=== PATIENT | male | born 1980 | race African-American/Black ===

== ENCOUNTER 2016-08-05 15:53 | Emergency (ER) | payer BC, OTHER ==
[~2016-08-05] VITALS: Ht 165.1 cm; Wt 86.2 kg
[~2016-08-05 15:53] MED LIST: ANTI-ITCH28 GM TOPIC; BACTRIM DS TAB1 EAC1 ORAL; BENTYL10 MG ORAL; CEFDINIR300 MG PO; CLOTRIMAZOLE-BE15 GM TP; CYCLOBENZAPRINE10 MG ORAL; IBUPROFEN600 MG ORAL; IBUPROFEN800 M1 PO; KEFLEX500 MG ORAL; LIDOCAINE VISC100 ML MT; NKM; TRAMADOL HCL50 MG ORAL; ZOFRAN4 MG ORAL
[2016-08-05] MEDS ORDERED: Tetanus/Diptheria/Pertussis Vaccine 0.5ml Syr IM ONE (16:15)
[2016-08-05] MEDS ORDERED: Bacitracin Oint UD TOPIC ONE (16:15)
[2016-08-05] MEDS ORDERED: BACITRACIN15 GM TOPIC (16:22)
[2016-08-05 18:28] VITALS: BP 145/67
[2016-08-05 18:30] VITALS: BP 145/67
--- NOTE | 2016-08-05 22:09 | Emergency Room Report ---
History of Present Illness General Chief Complaint: Laceration Source: Patient Present Illness HPI the patient is a 35-year-old male presenting for one week old laceration to the neck. Patient states that a metal framing cut the neck while he was transporting. He noticed pain and bleeding to the area. He states that he cleaned the area with peroxide multiple times and covered it with a bandage. He states that pain has resolved and is now a 0/10. He is concerned for infection. He is unsure of last tetanus shot. He denies any other symptoms including fever, chills, shortness of breath, sore throat Allergies: Coded Allergies: No Known Allergies (Unverified , 06/05/13) Patient History Past Medical History: see triage record Pertinent Family History: none Reviewed Nursing Documentation: PMH: Agreed, PSxH: Agreed Nursing Documentation-PMH Past Medical History: No Stated History Review of Systems All Other Systems: negative except mentioned in HPI Physical Exam Vital Signs Date Time Temp Pulse Resp B/P Pulse Ox O2 Delivery O2 Flow Rate FiO2 08/05/16 16:02 98.2 61 20 145/67 99 Room Air Sp02 EP Interpretation: reviewed, normal General Appearance: no apparent distress, alert, GCS 15, non-toxic Head: normocephalic, atraumatic Eyes: bilateral eye PERRL, bilateral eye normal inspection ENT: hearing grossly normal, normal pharynx, no angioedema, normal voice Neck: supple, no bony tend, other - 2cm linear laceration to R neck. healing well. Musculoskeletal: back normal, gait/station normal, normal range of motion Neurologic: alert, oriented x3, responsive, motor strength/tone normal, sensory intact, speech normal Psychiatric: judgement/insight normal, memory normal, mood/affect normal, no suicidal/homicidal ideation Skin: normal color, no rash, warm/dry, well hydrated, wd healing/no infection noted, laceration - 2cm linear laceration to R neck Lymphatic: no adenopathy Medical Decision Making PA Attestation Dr. Daley is my supervising physician. Patient management was discussed with my supervising physician Diagnostic Impression: Primary Impression: Laceration ER Course the patient is a 35-year-old male presenting for one week old laceration to the neck Ddx considered include but not limited to fracture, tendon/ligament injury, avulsion, nerve damage, infection The wound is well healing and well approximated. No bleeding. No surrounding erythema. Nontender. No discharge The patient is given a tetanus shot. The wound is outside of the time period for closure and is healing well on its own He is discharged home with a prescription for bacitracin and will continue to keep the area clean and dry. ER precautions given Last Vital Signs Date Time Temp Pulse Resp B/P Pulse Ox O2 Delivery O2 Flow Rate FiO2 08/05/16 18:30 98.2 69 20 145/67 99 Room Air Status: improved Disposition: HOME, SELF-CARE Condition: Improved Scripts Bacitracin (Bacitracin) 28.4 Gm Oint...g. 1 APPLIC TOPIC THREE TIMES A DAY, #28 GM Prov: JASON PURI 08/05/16 Referrals: Nathalie MUÑIZ,REFERRING (PCP) Patient Instructions: Nonsutured Laceration Care Additional Instructions: I discussed my findings with the patient. All questions and concerns have been answered. Treatment and medication compliance have been addressed. I advised the patient that they need to follow up with PMD in 3-5 days. Return to ED if symptoms worsen, new symptoms arise, or if needed for any reason. Patient verbalized understanding of discharge instructions. JASON PURI Aug 05, 2016 22:09
== END 2016-08-05 16:30 | disposition home or self-care (01) ==
LOC: EMR 16:20
DX: S11.91XA Laceration without foreign body of unspecified part of neck, initial encounter (principal); W45.8XXA Other foreign body or object entering through skin, initial encounter; Y92.89 Other specified places as the place of occurrence of the external cause; Z23 Encounter for immunization
CPT/HCPCS: 90471; 90715; 96372; 99283

== ENCOUNTER 2016-08-27 15:32 | Emergency (ER) | payer OTHER ==
[~2016-08-27] VITALS: Ht 165.1 cm; Wt 83.9 kg
[~2016-08-27 15:32] MED LIST changes: +BACITRACIN15 GM TOPIC
[2016-08-27] MEDS ORDERED: TERBINAFINE15 GM TP (15:52)
[2016-08-27 16:04] VITALS: BP 118/59
[2016-08-27 16:06] VITALS: BP 118/59
--- NOTE | 2016-08-27 21:09 | Emergency Room Report ---
History of Present Illness General Chief Complaint: Skin Rash/Abscess Source: Patient Present Illness HPI The patient is a 35-year-old male presenting for rash of the genital region for the past month. This is described as itchy and does not hurt. He denies any penile pain or discharge. He denies dysuria, hematuria, abdominal pain, testicular pain, fever, chills Allergies: Coded Allergies: No Known Allergies (Unverified , 06/05/13) Patient History Past Medical History: see triage record Pertinent Family History: none Reviewed Nursing Documentation: PMH: Agreed, PSxH: Agreed Nursing Documentation-PMH Past Medical History: No Stated History Review of Systems All Other Systems: negative except mentioned in HPI Physical Exam Vital Signs Date Time Temp Pulse Resp B/P Pulse Ox O2 Delivery O2 Flow Rate FiO2 08/27/16 15:37 98.2 60 20 118/59 98 Room Air Sp02 EP Interpretation: reviewed, normal General Appearance: no apparent distress, alert, GCS 15, non-toxic Head: normocephalic, atraumatic Eyes: bilateral eye PERRL, bilateral eye normal inspection ENT: hearing grossly normal, normal pharynx, no angioedema, normal voice Neck: full range of motion, supple/symm/no masses Genitourinary: penis normal, other - rash on inguinal region. See skin section Musculoskeletal: back normal, gait/station normal, normal range of motion, non- tender Neurologic: alert, oriented x3, responsive, motor strength/tone normal, sensory intact, speech normal Psychiatric: judgement/insight normal, memory normal, mood/affect normal, no suicidal/homicidal ideation Skin: rash - diffuse erythematous rash of bilat inguinal regions. Some scaling with raised border. Lymphatic: no adenopathy Medical Decision Making PA Attestation Dr. Lynch is my supervising physician. Patient management was discussed with my supervising physician Diagnostic Impression: Primary Impression: Tinea cruris ER Course The patient is a 35-year-old male presenting for rash of the genital region DDx considered but not limited to: tinea cruris, cellulitis, abscess, STD, dermatitis, among others PE: afebrile. NAD diffuse erythematous rash of bilat inguinal regions. Some scaling with raised border. The patient is discharged home with a prescription for topical antifungal. ER precautions are given Last Vital Signs Date Time Temp Pulse Resp B/P Pulse Ox O2 Delivery O2 Flow Rate FiO2 08/27/16 16:06 98.2 68 20 118/59 98 Room Air Status: improved Disposition: HOME, SELF-CARE Condition: Improved Scripts Terbinafine Hcl (TERBINAFINE) 15 Gm Cream..g. 1 APPLIC TP DAILY, #15 GM Prov: JASON PURI 08/27/16 Referrals: Nathalie MUÑIZ,REFERRING (PCP) Patient Instructions: Rash Additional Instructions: I discussed my findings with the patient. All questions and concerns have been answered. Treatment and medication compliance have been addressed. I advised the patient that they need to follow up with PMD in 3-5 days. Return to ED if symptoms worsen, new symptoms arise, or if needed for any reason. Patient verbalized understanding of discharge instructions. JASON PURI Aug 27, 2016 21:09
== END 2016-08-27 16:23 | disposition home or self-care (01) ==
LOC: EMR 15:48
DX: B35.6 Tinea cruris (principal)
CPT/HCPCS: 99283